=== PATIENT | male | born 1930 | race Caucasian/White ===

== ENCOUNTER 2017-06-20 13:50 | Inpatient (IN) | payer MEDICARE, OTHER ==
[~2017-06-20] VITALS: Ht 182.9 cm; Wt 93.2 kg
[~2017-06-20 13:50] MED LIST: ALBU18HF2 IH; ALBU2.5V12 NEB; ARFO15VI3 NEB; ASPI-611 PO; ATOR40TA71 PO; BUDE0.256 NEB; CALC500T11 PO; CHOL100010 PO; HYDR10TA14 PO; HYDR20TA3 PO; LISI10TA4 PO; MULT1TAB74 PO; NIT5P TD; NITR0.4T51 SL; NOR5T PO; RIVA20TA PO; SALS750T20 PO; TIOT18CA7 IH
[2017-06-20] MEDS ORDERED: normal saline 1000ML IV soln IVB ONE (15:20)
[2017-06-20 15:43] LABS: BASOPHILS % (AUTO) 0.6 % (0-1); EOSINOPHILS # (AUTO) 0.1 X10'3 (0-0.9); EOSINOPHILS % (AUTO) 2.2 % (0-6); HEMATOCRIT 23.2 % (42.0-52.0); HEMOGLOBIN 7.9 g/dl (14.0-17.9); LYMPHOCYTES # (AUTO) 1.1 X10'3 (1.1-4.8); LYMPHOCYTES % (AUTO) 19.1 % (21-51); MEAN CORPUSCULAR HEMOGLOBIN 34.8 PG (27.0-31.0); MEAN CORPUSCULAR HGB CONC 33.9 % (33.0-36.5); MEAN CORPUSCULAR VOLUME 102.8 FL (78-98); MEAN PLATELET VOLUME 9.5 FL (7.4-10.4); MONOCYTES # (AUTO) 0.4 X10'3 (0-0.9); MONOCYTES % (AUTO) 7.8 % (2-12); NEUTROPHILS % (AUTO) 70.3 % (42-75); PLATELET COUNT 124 X10'3 (140-440); RED BLOOD COUNT 2.26 X10'6 (4.70-6.10); RED CELL DISTRIBUTION WIDTH 16.3 % (11.5-14.5); WHITE BLOOD COUNT 5.7 X10'3 (4.5-11.0)
[2017-06-20 16:01] LABS: ALANINE AMINOTRANSFERASE 25 U/L (12-78); ALBUMIN 2.7 G/DL (3.4-5.0); ALBUMIN/GLOBULIN RATIO 1.1 (1.1-1.5); ALKALINE PHOSPHATASE 54 IU/L (46-116); ANION GAP 9 (8-16); ASPARTATE AMINO TRANSFERASE 19 U/L (10-37); BILIRUBIN,TOTAL 0.2 MG/DL (0.1-1.0); BLOOD UREA NITROGEN 30 MG/DL (7-18); BUN/CREATININE RATIO 26.8 (5.4-32.0); CALCIUM 8.4 MG/DL (8.5-10.1); CHLORIDE 109 MMOL/L (99-107); CREATININE 1.12 MG/DL (0.60-1.10); GLUCOSE 122 MG/DL (70-104); LIPASE 329 U/L (73-393); POTASSIUM 3.2 MMOL/L (3.5-5.1); SODIUM 142 MMOL/L (135-145); TOTAL CARBON DIOXIDE 23.9 MMOL/L (24-32); TOTAL PROTEIN 5.1 G/DL (6.4-8.2); TROPONIN I < 0.04 NG/ML (0.0-0.05); eGFR 62 ML/MIN
[2017-06-20] MEDS ORDERED: calcium carbonate 500mg chew tablet PO PRN (16:15)
[2017-06-20] MEDS ORDERED: PEG 3350/Na sulf,bicarb,Cl/KCl oral sol 4 liter bottle PO ONE (16:15)
[2017-06-20] MEDS ORDERED: magnesium 2GM in 50ml NS 50 ML IV PRN (16:15)
[2017-06-20] MEDS ORDERED: albuterol 2.5 MG/3 ML nebule NEB PRN (16:15)
[2017-06-20] MEDS ORDERED: acetaminophen 325mg tablet PO PRN (16:15)
[2017-06-20] MEDS ORDERED: potassium Cl 20 mEq SR tablet PO PRN (16:15)
[2017-06-20] MEDS ORDERED: magnesium Cl slow-release 64mg tablet PO PRN (16:15)
[2017-06-20] MEDS ORDERED: mag hydrox/Alum hydrox/simeth 30ml oral suspension PO PRN (16:15)
[2017-06-20] MEDS ORDERED: magnesium 4gm in 100ml NS 100 ML IV PRN (16:15)
[2017-06-20] MEDS ORDERED: magnesium hydroxide 30ml (MOM) UD suspension PO PRN (16:15)
[2017-06-20] MEDS ORDERED: HYDROcodone/acetaminophen 5mg/325mg tablet PO PRN (16:15)
[2017-06-20] MEDS ORDERED: MORPHINE 2MG in 2ml NS syringe IV PRN (16:15)
[2017-06-20] MEDS ORDERED: ondansetron/PF 4mg/2ml inj IV PRN (16:15)
[2017-06-20] MEDS ORDERED: potassium Cl 40MEQ/NS 500ml 500 ML IV PRN ×2 (16:15)
[2017-06-20 17:57] LABS: CLARITY,URINE CLEAR (Clear); COLOR,URINE YELLOW (Yellow); GLUCOSE, URINE NEGATIVE (Neg); KETONES,URINE NEGATIVE (Neg); LEUKOCYTE ESTERASE ,URINE NEGATIVE (Neg); NITRITES, URINE NEGATIVE (Neg); OCCULT BLOOD,URINE NEGATIVE (Neg); PH,URINE 5.5 (4.8-8.0); PROTEIN,URINE NEGATIVE (Neg); UROBILINOGEN,URINE 0.2 E.U/dL (0.2-1.0)
[2017-06-20 18:02] LABS: UA COLLECTION TYPE CLN CATCH MIDSTREAM
[2017-06-20 18:05] VITALS: BP 136/54
[2017-06-20] MEDS: normal saline 1000ml 1,000 ML IV SCH (19:14)
[2017-06-20] MEDS: TYPE IN GENERIC & BRAND NAME OF PATIENT MED STRENGTH & FORM IH SCH (19:34)
[2017-06-20] MEDS ORDERED: morphine 4 MG/ML inj SYRINge IV PRN (19:36)
[2017-06-20] MEDS: potassium Cl 20 mEq SR tablet PO PRN ×2 (19:42→23:57)
[2017-06-20] MEDS ORDERED: budesonide 0.5mg/2ml UD nebule IH SCH (20:00)
[2017-06-20] MEDS: SALSALATE 500 MG PO SCH (21:00)
[2017-06-20] MEDS: atorvastatin 20mg tablet PO SCH (21:07)
[2017-06-20] MEDS: hydrocortisone 10mg tablet PO SCH (21:15)
[2017-06-20 22:00] VITALS: BP 103/57
[2017-06-21] VITALS (8 sets, daily range): BP systolic 116–156; BP diastolic 36–70
[2017-06-21] MEDS: potassium Cl 20 mEq SR tablet PO PRN (03:56)
[2017-06-21 06:19] LABS: BASOPHILS % (AUTO) 0.7 % (0-1); EOSINOPHILS # (AUTO) 0.1 X10'3 (0-0.9); EOSINOPHILS % (AUTO) 2.1 % (0-6); HEMATOCRIT 23.8 % (42.0-52.0); LYMPHOCYTES # (AUTO) 1.2 X10'3 (1.1-4.8); LYMPHOCYTES % (AUTO) 18.6 % (21-51); MEAN CORPUSCULAR HEMOGLOBIN 34.5 PG (27.0-31.0); MEAN CORPUSCULAR HGB CONC 33.7 % (33.0-36.5); MEAN CORPUSCULAR VOLUME 102.3 FL (78-98); MONOCYTES # (AUTO) 0.5 X10'3 (0-0.9); MONOCYTES % (AUTO) 7.6 % (2-12); NEUTROPHILS # (AUTO) 4.7 X10'3 (1.8-7.7); PLATELET COUNT 137 X10'3 (140-440); RED BLOOD COUNT 2.33 X10'6 (4.70-6.10); RED CELL DISTRIBUTION WIDTH 16.2 % (11.5-14.5); WHITE BLOOD COUNT 6.6 X10'3 (4.5-11.0)
[2017-06-21 06:38] LABS: ANION GAP 10 (8-16); BLOOD UREA NITROGEN 22 MG/DL (7-18); CALCIUM 8.4 MG/DL (8.5-10.1); CHLORIDE 112 MMOL/L (99-107); CREATININE 1.16 MG/DL (0.60-1.10); GLUCOSE 119 MG/DL (70-104); MAGNESIUM 2.1 MG/DL (1.5-2.4); POTASSIUM 3.7 MMOL/L (3.5-5.1); SODIUM 145 MMOL/L (135-145); TOTAL CARBON DIOXIDE 22.9 MMOL/L (24-32); eGFR 60 ML/MIN
[2017-06-21] MEDS ORDERED: ipratropium 0.5 MG/2.5ML nebule IH PRN (08:00)
[2017-06-21] MEDS: TYPE IN GENERIC & BRAND NAME OF PATIENT MED STRENGTH & FORM IH SCH ×2 (08:00→20:00)
[2017-06-21] MEDS: multivitamins, therapeutics tablet PO SCH ×2 (08:00→08:15)
[2017-06-21] MEDS: hydrocortisone 10mg tablet PO SCH ×3 (08:00→20:30)
[2017-06-21] MEDS: SALSALATE 500 MG PO SCH ×3 (08:00→20:27)
[2017-06-21] MEDS: K and/or MAG REPLACEMENT MC SCH (08:09)
[2017-06-21] MEDS ORDERED: GABA100C PO (13:05)
[2017-06-21] MEDS: budesonide 0.5mg/2ml UD nebule IH SCH ×2 (13:36→19:58)
[2017-06-21] MEDS: gabapentin 100mg capsule PO SCH ×2 (14:55→20:29)
[2017-06-21] MEDS ORDERED: fentaNYL/PF 50MCG/1 ML 2ML syringe ONE (16:34)
[2017-06-21] MEDS ORDERED: MIDAZolam 5mg/ml 2ml vial ONE (16:35)
[2017-06-21] MEDS: atorvastatin 20mg tablet PO SCH (20:29)
[2017-06-22] VITALS (21 sets, daily range): BP systolic 113–157; BP diastolic 49–103
[2017-06-22 05:21] LABS: BASOPHILS % (AUTO) 0.4 % (0-1); EOSINOPHILS # (AUTO) 0.2 X10'3 (0-0.9); EOSINOPHILS % (AUTO) 3.3 % (0-6); LYMPHOCYTES # (AUTO) 0.7 X10'3 (1.1-4.8); LYMPHOCYTES % (AUTO) 14.8 % (21-51); MEAN CORPUSCULAR HEMOGLOBIN 35.2 PG (27.0-31.0); MEAN CORPUSCULAR HGB CONC 34.4 % (33.0-36.5); MEAN CORPUSCULAR VOLUME 102.6 FL (78-98); MEAN PLATELET VOLUME 9.5 FL (7.4-10.4); MONOCYTES # (AUTO) 0.4 X10'3 (0-0.9); MONOCYTES % (AUTO) 8.3 % (2-12); NEUTROPHILS # (AUTO) 3.4 X10'3 (1.8-7.7); NEUTROPHILS % (AUTO) 73.2 % (42-75); PLATELET COUNT 108 X10'3 (140-440); RED BLOOD COUNT 1.95 X10'6 (4.70-6.10); WHITE BLOOD COUNT 4.6 X10'3 (4.5-11.0)
[2017-06-22 06:05] LABS: HEMOGLOBIN 6.9 g/dl (14.0-17.9)
[2017-06-22 06:08] LABS: ALBUMIN 2.5 G/DL (3.4-5.0); ANION GAP 9 (8-16); BLOOD UREA NITROGEN 17 MG/DL (7-18); BUN/CREATININE RATIO 19.5 (5.4-32.0); CHLORIDE 112 MMOL/L (99-107); CREATININE 0.87 MG/DL (0.60-1.10); GLUCOSE 111 MG/DL (70-104); MAGNESIUM 1.9 MG/DL (1.5-2.4); POTASSIUM 3.8 MMOL/L (3.5-5.1); SODIUM 144 MMOL/L (135-145); TOTAL CARBON DIOXIDE 23.5 MMOL/L (24-32); eGFR 83 ML/MIN
[2017-06-22] MEDS: multivitamins, therapeutics tablet PO SCH (08:00)
[2017-06-22] MEDS: SALSALATE 500 MG PO SCH ×3 (08:00→20:19)
[2017-06-22] MEDS: TYPE IN GENERIC & BRAND NAME OF PATIENT MED STRENGTH & FORM IH SCH ×2 (08:00→20:00)
[2017-06-22] MEDS: K and/or MAG REPLACEMENT MC SCH (08:03)
[2017-06-22] MEDS: hydrocortisone 10mg tablet PO SCH ×2 (08:24→20:18)
[2017-06-22] MEDS: gabapentin 100mg capsule PO SCH ×2 (08:25→20:17)
[2017-06-22] MEDS: budesonide 0.5mg/2ml UD nebule IH SCH ×2 (08:48→20:08)
[2017-06-22] MEDS ORDERED: MIDAZolam 5mg/ml 2ml vial ONE (12:49)
[2017-06-22] MEDS ORDERED: fentaNYL/PF 50MCG/1 ML 2ML syringe ONE (12:49)
[2017-06-22] MEDS ORDERED: LIDOcaine Viscous 15ml cup ONE (12:49)
[2017-06-22] MEDS: pantoprazole 40 MG vial IV SCH ×2 (17:57→20:17)
[2017-06-22] MEDS: normal saline 1000ml 1,000 ML IV SCH (20:13)
[2017-06-22] MEDS: atorvastatin 20mg tablet PO SCH (20:17)
[2017-06-23 05:07] LABS: BASOPHILS % (AUTO) 0.4 % (0-1); EOSINOPHILS # (AUTO) 0.1 X10'3 (0-0.9); EOSINOPHILS % (AUTO) 2.2 % (0-6); HEMATOCRIT 25.7 % (42.0-52.0); HEMOGLOBIN 8.9 g/dl (14.0-17.9); LYMPHOCYTES # (AUTO) 0.8 X10'3 (1.1-4.8); LYMPHOCYTES % (AUTO) 15.7 % (21-51); MEAN CORPUSCULAR HEMOGLOBIN 33.7 PG (27.0-31.0); MEAN CORPUSCULAR HGB CONC 34.5 % (33.0-36.5); MEAN CORPUSCULAR VOLUME 97.6 FL (78-98); MEAN PLATELET VOLUME 9.6 FL (7.4-10.4); MONOCYTES # (AUTO) 0.5 X10'3 (0-0.9); MONOCYTES % (AUTO) 9.1 % (2-12); NEUTROPHILS # (AUTO) 3.7 X10'3 (1.8-7.7); NEUTROPHILS % (AUTO) 72.6 % (42-75); PLATELET COUNT 104 X10'3 (140-440); RED BLOOD COUNT 2.63 X10'6 (4.70-6.10); WHITE BLOOD COUNT 5.2 X10'3 (4.5-11.0)
[2017-06-23 05:36] LABS: ALBUMIN 2.5 G/DL (3.4-5.0); ANION GAP 8 (8-16); BLOOD UREA NITROGEN 14 MG/DL (7-18); BUN/CREATININE RATIO 17.1 (5.4-32.0); CHLORIDE 110 MMOL/L (99-107); CREATININE 0.82 MG/DL (0.60-1.10); GLUCOSE 122 MG/DL (70-104); MAGNESIUM 1.8 MG/DL (1.5-2.4); POTASSIUM 3.5 MMOL/L (3.5-5.1); SODIUM 142 MMOL/L (135-145); TOTAL CARBON DIOXIDE 24.2 MMOL/L (24-32); eGFR 89 ML/MIN
[2017-06-23 06:00] VITALS: BP 127/88
[2017-06-23 07:15] LABS: ANISOCYTOSIS 2+; PLATELET ESTIMATE DECREASED; POLYCHROMASIA 1+
[2017-06-23] MEDS: K and/or MAG REPLACEMENT MC SCH (07:26)
[2017-06-23] MEDS: SALSALATE 500 MG PO SCH (07:27)
[2017-06-23] MEDS: hydrocortisone 10mg tablet PO SCH (07:41)
[2017-06-23] MEDS: multivitamins, therapeutics tablet PO SCH (07:41)
[2017-06-23] MEDS: gabapentin 100mg capsule PO SCH (07:41)
[2017-06-23] MEDS: pantoprazole 40 MG vial IV SCH (07:41)
[2017-06-23] MEDS ORDERED: PANT-47 PO (12:39)
== END 2017-06-23 14:35 | disposition home or self-care (01) | DRG 378 ==
LOC: ER 13:50 → ED HOLD 16:15 → ORTHO 4S 18:16
PROVIDERS: ADMIT Internal Medicine; ATTEND Internal Medicine
PROC: 0DBP8ZX Excision of Rectum, Via Natural or Artificial Opening Endoscopic, Diagnostic (ICD-10-PCS; principal; 2017-06-21)
PROC: 0DB68ZX Excision of Stomach, Via Natural or Artificial Opening Endoscopic, Diagnostic (ICD-10-PCS; 2017-06-22)
PROC: 30233N1 Transfusion of Nonautologous Red Blood Cells into Peripheral Vein, Percutaneous Approach (ICD-10-PCS; 2017-06-22)
DX: K29.61 Other gastritis with bleeding (principal); D62 Acute posthemorrhagic anemia; E27.40 Unspecified adrenocortical insufficiency; G62.9 Polyneuropathy, unspecified; I48.0 Paroxysmal atrial fibrillation; E78.5 Hyperlipidemia, unspecified; I10 Essential (primary) hypertension; I25.10 Atherosclerotic heart disease of native coronary artery without angina pectoris; K26.9 Duodenal ulcer, unspecified as acute or chronic, without hemorrhage or perforation; J44.9 Chronic obstructive pulmonary disease, unspecified; K57.30 Diverticulosis of large intestine without perforation or abscess without bleeding; K62.1 Rectal polyp; K64.8 Other hemorrhoids; K22.8 Other specified diseases of esophagus; K44.9 Diaphragmatic hernia without obstruction or gangrene; K21.9 Gastro-esophageal reflux disease without esophagitis; Z90.49 Acquired absence of other specified parts of digestive tract; Z88.1 Allergy status to other antibiotic agents; Z88.8 Allergy status to other drugs, medicaments and biological substances; Z79.01 Long term (current) use of anticoagulants; Z79.82 Long term (current) use of aspirin; Z79.899 Other long term (current) drug therapy; Z82.49 Family history of ischemic heart disease and other diseases of the circulatory system
CPT/HCPCS: 36415; 43239; 45380; 71045; 80048; 80053; 81003; 83690; 83735; 84484; 85025; 86885; 86900; 86901; 86920; 87070; 93005; 94640; 94760; 99285; A4353; A4620; C9113; G0500; J2250; J3010; J7030; J7626; P9016

== ENCOUNTER 2017-12-13 15:21 | Emergency (ER) | payer MEDICARE, OTHER ==
[~2017-12-13] VITALS: Ht 182.9 cm; Wt 87.0 kg
[~2017-12-13 15:21] MED LIST changes: -ASPI-611 PO; +GABA100C PO; -NIT5P TD; -NITR0.4T51 SL; +PANT-47 PO; -RIVA20TA PO
[2017-12-13] MEDS ORDERED: bacitracin 15gm ointment TP ONE (16:00)
[2017-12-13] MEDS ORDERED: SULF1TAB49 PO (16:23)
== END 2017-12-13 16:37 | disposition home or self-care (01) ==
LOC: ER 15:21
DX: S91.102A Unspecified open wound of left great toe without damage to nail, initial encounter (principal); L97.529 Non-pressure chronic ulcer of other part of left foot with unspecified severity; G62.9 Polyneuropathy, unspecified; I25.10 Atherosclerotic heart disease of native coronary artery without angina pectoris; I10 Essential (primary) hypertension; J44.9 Chronic obstructive pulmonary disease, unspecified; K21.9 Gastro-esophageal reflux disease without esophagitis; Z90.49 Acquired absence of other specified parts of digestive tract; Z98.890 Other specified postprocedural states; Z88.1 Allergy status to other antibiotic agents; Z88.8 Allergy status to other drugs, medicaments and biological substances; Z79.899 Other long term (current) drug therapy; Z86.14 Personal history of Methicillin resistant Staphylococcus aureus infection; W45.8XXA Other foreign body or object entering through skin, initial encounter; Y93.89 Activity, other specified; Y92.89 Other specified places as the place of occurrence of the external cause; Y99.9 Unspecified external cause status
CPT/HCPCS: 99284; A6402

== ENCOUNTER 2018-07-27 05:57 | Emergency (ER) | payer MEDICARE, OTHER ==
[~2018-07-27] VITALS: Ht 182.9 cm; Wt 84.1 kg
[~2018-07-27 05:57] MED LIST changes: +HYDR-3780 PO; -HYDR10TA14 PO; +HYDR20TA23 PO; -HYDR20TA3 PO
[2018-07-27] MEDS ORDERED: NITR0.4T51 SL (06:08)
[2018-07-27] MEDS ORDERED: NIT5P TD (06:08)
[2018-07-27] MEDS ORDERED: methylPREDNISolone sod succ 125mg/2ml vial IV ONE (06:20)
[2018-07-27] MEDS ORDERED: ipratropium/albuterol 3ml nebule NEB ONE (06:20)
[2018-07-27 06:40] LABS: BASOPHILS % (AUTO) 0.4 % (0-1); EOSINOPHILS # (AUTO) 0.4 X10'3 (0-0.9); EOSINOPHILS % (AUTO) 4.2 % (0-6); HEMATOCRIT 42.4 % (42.0-52.0); HEMOGLOBIN 14.2 g/dl (14.0-17.9); LYMPHOCYTES % (AUTO) 11.7 % (21-51); MEAN CORPUSCULAR HEMOGLOBIN 32.4 PG (27.0-31.0); MEAN CORPUSCULAR HGB CONC 33.4 g/dL (33.0-36.5); MEAN PLATELET VOLUME 9.3 FL (7.4-10.4); MONOCYTES # (AUTO) 0.8 X10'3 (0-0.9); MONOCYTES % (AUTO) 8.9 % (2-12); NEUTROPHILS # (AUTO) 6.4 X10'3 (1.8-7.7); NEUTROPHILS % (AUTO) 74.8 % (42-75); PLATELET COUNT 160 X10'3 (140-440); RED BLOOD COUNT 4.37 X10'6 (4.70-6.10); RED CELL DISTRIBUTION WIDTH 14.6 % (11.5-14.5); WHITE BLOOD COUNT 8.5 X10'3 (4.5-11.0)
[2018-07-27 06:42] VITALS: BP 155/88
[2018-07-27 06:51] LABS: ALANINE AMINOTRANSFERASE 31 U/L (12-78); ALBUMIN 3.5 G/DL (3.4-5.0); ALBUMIN/GLOBULIN RATIO 1.1 (1.1-1.5); ALKALINE PHOSPHATASE 68 IU/L (46-116); ANION GAP 8 (8-16); ASPARTATE AMINO TRANSFERASE 25 U/L (10-37); BILIRUBIN,TOTAL 0.4 MG/DL (0.1-1.0); BLOOD UREA NITROGEN 20 MG/DL (7-18); BUN/CREATININE RATIO 21.3 (5.4-32.0); CALCIUM 9.3 MG/DL (8.5-10.1); CHLORIDE 105 MMOL/L (99-107); CREATININE 0.94 MG/DL (0.60-1.10); GLUCOSE 131 MG/DL (70-104); PARTIAL THROMBOPLASTIN TIME 25 SECONDS (22-32); POTASSIUM 3.8 MMOL/L (3.5-5.1); SODIUM 141 MMOL/L (135-145); TOTAL CARBON DIOXIDE 28.5 MMOL/L (24-32); TOTAL PROTEIN 6.7 G/DL (6.4-8.2); eGFR 76 ML/MIN
[2018-07-27] MEDS ORDERED: PRED20TA PO (07:26)
== END 2018-07-27 07:40 | disposition home or self-care (01) ==
LOC: ER 05:57
DX: J44.1 Chronic obstructive pulmonary disease with (acute) exacerbation (principal); G62.9 Polyneuropathy, unspecified; I25.10 Atherosclerotic heart disease of native coronary artery without angina pectoris; I10 Essential (primary) hypertension; K21.9 Gastro-esophageal reflux disease without esophagitis; Z90.49 Acquired absence of other specified parts of digestive tract; Z98.890 Other specified postprocedural states; Z87.891 Personal history of nicotine dependence; Z88.1 Allergy status to other antibiotic agents; Z88.8 Allergy status to other drugs, medicaments and biological substances; Z79.899 Other long term (current) drug therapy
CPT/HCPCS: 36415; 71045; 80053; 83880; 84484; 85025; 85610; 85730; 93005; 94640; 94760; 96374; 99284; J2930